=== PATIENT | female | born 1995 | race Caucasian/White ===

== ENCOUNTER 2017-01-06 14:50 | Observation (INO) | payer OTHER, SELFPAY ==
[~2017-01-06] VITALS: Ht 162.6 cm; Wt 62.2 kg
[2017-01-06] MEDS ORDERED: ACETAMINOPHEN 500 MG TAB PO PRN (15:00)
[2017-01-06] MEDS ORDERED: ONDANSETRON 4 MG TAB (S0181) PO PRN (15:00)
[2017-01-06 15:30] VITALS: BP 103/56
--- NOTE | 2017-01-06 20:00 | REPUSA ---
CLINICAL HISTORY: Possible seizure TECHNIQUE: Head MRV with 3D TOF COMPARISON: No study for comparison is available at the time of interpretation. MR venogram: The superior sagittal sinus, transverse sinuses, straight sinus and proximal portions of the internal jugular veins are patent bilaterally. No evidence of venous obstruction. IMPRESSION: Patent intracranial venogram.
--- NOTE | 2017-01-06 20:00 | REPUSA ---
CLINICAL HISTORY: Possible seizure TECHNIQUE: MRI of the Brain without gadolinium. Multiplanar T1 and T2 weighted images of the brain we re obtained. COMPARISON: No study for comparison is available at the time of interpretation. T1 and T2: No hydrocephalus, mass effect or midline shift. FLAIR: No foci of parenchymal edema to suggest ischemic disease or encephalomalacia Vascular flow voids: Preserved, without visible stricture or aneurysm on this non-angiographic exam. Midline: Pituitary normal size. Brain stem and corpus callosum appear normal. Sinuses: Partially visualized sinuses and mastoid aircells are clear. Diffusion Imaging: No regions of abnormal hyperintensity to suggest acute ischemia. Gradient Echo: No evidence of calcium or sequelae of hemorrhagic blood products. IMPRESSION: No acute intracranial abnormalities.
[2017-01-06 22:00] VITALS: BP 117/72
[2017-01-07 06:00] VITALS: BP 112/72
--- NOTE | 2017-01-07 12:47 | CR ---
DATE OF CONSULTATION: 01/07/2017 REFERRING PROVIDER: Dr. Enrrique Carter HISTORY OF PRESENT ILLNESS: The patient is a 21-year-old, (G) 2, para (P) 1-0-0-1, at 18 plus 3 weeks gestation female who was sent to [facility] after having an episode of losing consciousness yesterday. The patient states that yesterday while at the pharmacy she suddenly developed a lightheaded, dizzy feeling lasting a few seconds. The patient went to her home. She enjoyed activities including dancing for about 45 minutes. The patient fell while she was dancing and sprained her ankle pretty badly. She also hurt her knee. She had pretty excruciating pain. She needed to be helped up and was sitting on the couch. The patient sat on the couch for several minutes and then was able to get up and walk to the kitchen. In the kitchen, she felt nauseated and felt like throwing up. The patient then sat down on a stool. She was soon seen to fall backwards and smashed the back of her head to the floor. She was noted to be having fine tremors of her arms and legs for approximately 7-8 seconds. The patient was motionless with her eyes open. The patient then regained consciousness after about 30 seconds. Her fiance and her father helped her up off of the floor. The patient was able to speak and ambulate with assistance to her bedroom. She kept repeating the words it hurts. The patient then sat on the bed and laid down on her own. She was again noted to lose consciousness. The episode of losing consciousness again lasted for several seconds. There was no generalized tonic clonic activity noted. The patient's fiance contacted EMS. Ambulance personnel arrived approximately 15 minutes later. The patient was able to come to after approximately 5-8 minutes of being unconscious and was able to communicate via nodding. She was unable to speak. She could not speak for several hours she states. She remembers waking up in the emergency department when someone was trying to place an IV line after giving her an injection of lidocaine into her right wrist. She states even then her memory was quite patchy. The patient did not have any tongue biting or incontinence. She was quite confused for at least 3 hours. The patient did have a CT scan at [facility] which was negative. She was told that she could be transferred to the emergency department at [facility], but refused the transfer due to fear of cost of this service. She went home. The patient since then has had a persistent headache. She denies any numbness, tingling, vertigo, dizziness, or ataxia at this time. MRI of the brain and MR venogram were recommended due to possible hypercoagulable state during to rule out any sinus thrombosis. It was thought that the patient may have had a seizure. It is quite possible the patient may have actually just had syncope with the significant concussion causing the patient to have a transient altered mental status. The patient seems to be nonfocal on examination at this point. REVIEW OF SYSTEMS: 14-point review of systems was obtained and is negative except as per history of present illness (HPI). CURRENT MEDICATIONS: - vitamins 27/1 mg daily ALLERGIES: - PENICILLIN SOCIAL HISTORY: The patient continues to smoke tobacco. She denies use of any alcohol or illicit drugs. FAMILY HISTORY: Positive for paternal first cousin with seizures. PAST MEDICAL HISTORY: Noncontributory. PAST SURGICAL HISTORY: Noncontributory other than hernia repair. PHYSICAL EXAMINATION: Current weight 127 pounds. Blood pressure 112/60. Respiratory rate is 18. The patient is afebrile. Oxygenation above 90% on room air. The patient is awake, alert, oriented to person, place and time. Speech, language comprehension, and repetition are intact. Pupils are 3 mm round and reactive to light. Extraocular movements are intact in all directions. Sensation V1, V2 and V3 is intact to light touch. No facial asymmetry to activation. Palate elevates symmetrically. Tongue is midline. No weakness of sternocleidomastoids bilaterally. Hearing subjectively equal to finger rub. No pronator drift. Strength is 5/5 including bilateral deltoids, biceps, triceps, handgrip, iliopsoas, quadriceps, anterior tibialis. The patient has some pain and ankle dorsiflexion on the right side due to a sprained ankle with some ecchymosis along the lateral aspect of the ankle. Sensory is intact to light touch and temperature in all four extremities. Coordination: Normal [id number]-aj-ebcm and xdnz-au-labu without any signs of ataxia or dysmetria. Gait deferred. ASSESSMENT: 1. 21-year-old female with episode of loss of consciousness with prolonged confusional state. Cannot entirely exclude seizure due to impact injury. More likely diagnosis would be syncope, vasovagal, in the setting of recent trauma to right knee and sprained ankle causing pain followed by a head injury resulting from syncope causing probable concussion. PLAN: 1. Obtain MRI of brain rule out intracranial abnormalities such as cerebral thrombus. 2. Obtain MR angiogram of the brain/venogram. Rule out dural venous thrombus. 3. Continue pain management as per primary team. 4. Obtain electroencephalogram (EEG). 5. The patient is advised not to drive, operate heavy machinery, climb ladders or work from heights, etc., for the next 6 months. 6. Followup in the neurology clinic after discharge.
[2017-01-07 14:00] VITALS: BP 117/61
--- NOTE | 2017-01-07 16:27 | IPNPDOC ---
Date Seen The patient was seen on 01/06/17. EEG is within normal limits. MRI negative for acute pathology, and thombus. Prolonged confusion possible secondary to concussion, though cannot entirely exclude seizures. Hold off on AED treatment for now. Avoid driving for 6 months. Follow up with outpatient cardiology and neurology. Progress Note SUBJECTIVE: Patient is a -year-old [RACE] [GENDER] with OBJECTIVE PHYSICAL EXAMINATION: VITAL SIGNS: Please see below. GENERAL: HEENT: CARDIOVASCULAR: . RESPIRATORY: . ABDOMINAL: EXTREMITIES: NEUROLOGICAL: PSYCHOLOGICAL: LABORATORY DATA: Please see below. MICROBIOLOGY: Please see below. IMAGING: Echocardiogram: . DVT prophylaxis ordered?: ASSESSMENT AND PLAN: This is a -year-old [RACE] [GENDER] with . PROBLEMS: 1. : . 2. : . 3. : . DISPOSITION: . VS, I&O, 24H, Fishbone Vital Signs/I&O Vital Signs Date Time Temp Pulse Resp B/P (MAP) Pulse Ox O2 Delivery O2 Flow Rate FiO2 01/07/17 14:00 98.1 62 18 117/61 (79) 99 Room Air I&O- Last 24 Hours up to 6 AM 01/08/17 06:00 Intake Total 720 ml Output Total 200 ml Balance 520 ml ALEKSANDR ROBLES MD Jan 07, 2017 16:27
--- NOTE | 2017-01-07 18:05 | EEG ---
DATE OF PROCEDURE: 01/07/2017 REFERRING PHYSICIAN: Dr. Enrrique Carter DIAGNOSIS: Seizure. EEG NUMBER: [id number] HISTORY: The patient is a 21-year-old woman with history of fall and loss of consciousness. This EEG was done to rule out epileptic potential. She is currently taking Zofran and vitamins. TECHNICAL DESCRIPTION: This digital EEG was recorded by 21 scalp ear and two EKG electrodes and was reviewed in bipolar and referential montages following reformatting in 10-20 international electrode placement system. INTERPRETATION: The patient was noted to be in awake and drowsy states during this EEG. Resting awake background rhythm consisted of well-formed posterior dominant rhythm with anterior/posterior gradient comprising of 10 Hz alpha activity measuring 15-40 microvolts in amplitude which was symmetric and reactive to eye opening. Attenuation of posterior dominant was seen during transition into drowsiness. Anteriorly low voltage and mixed frequency activity was noted. Stage I and II sleep were reviewed and were symmetric bilaterally. Hyperventilation elicited mild theta slowing of background rhythm. Photic stimulation remained unremarkable. EKG revealed normal sinus rhythm. No focal, lateralizing or epileptiform abnormalities were seen. No clinical or electrographic seizures were recorded. CONCLUSIONS: This EEG in awake, drowsy states, stage I and II sleep is within normal limits.
[2017-01-07 20:00] VITALS: BP 128/63
[2017-01-08 06:00] VITALS: BP 117/60
[2017-01-08] MEDS ORDERED: TYLE500T78 PO (07:12)
== END 2017-01-08 08:48 | disposition home or self-care (01) ==
LOC: M MSPAV 15:12
PROVIDERS: ADMIT Obstetrics & Gynecology; ATTEND Obstetrics & Gynecology
DX: O26.892 Other specified pregnancy related conditions, second trimester (principal); R42 Dizziness and giddiness; O99.332 Smoking (tobacco) complicating pregnancy, second trimester; F17.210 Nicotine dependence, cigarettes, uncomplicated; Z3A.18 18 weeks gestation of pregnancy; Z88.0 Allergy status to penicillin

== ENCOUNTER → 2017-03-29 | Outpatient (CLI) | payer OTHER ==
[2017-03-29 16:27] LABS: HEMOGLOBIN 8.6 g/dl (12.0-16.0); MEAN CORPUSCULAR HEMOGLOBIN 29.1 pg (27.0-33.0); MEAN CORPUSCULAR HGB CONC 31.9 g/dl (32.0-36.5); MEAN CORPUSCULAR VOLUME 91.2 fl (80.0-96.0); PLATELET COUNT, AUTOMATED 199 10^3/uL (150-450); RED BLOOD COUNT 2.96 10^6/uL (4.00-5.40); RED CELL DISTRIBUTION WIDTH 14.5 % (11.5-14.5); WHITE BLOOD COUNT 8.6 10^3/uL (4.0-10.0)
[2017-03-29 17:51] LABS: GLUCOSE CHALLENGE TEST 1 HOUR 88 MG/DL (LESS THAN 140)
== END ==
LOC: M LAB 13:41
DX: Z34.82 Encounter for supervision of other normal pregnancy, second trimester (principal); Z3A.30 30 weeks gestation of pregnancy
CPT/HCPCS: 76816

== ENCOUNTER 2017-04-01 14:39 | Emergency (ER) | payer OTHER ==
[2017-04-01] MEDS: LIDOCAINE VISCOUS 2% SOLN 15ML UDC MT (15:29)
== END 2017-04-01 15:50 | disposition home or self-care (01) ==
LOC: M ED 14:39
DX: O99.613 Diseases of the digestive system complicating pregnancy, third trimester (principal); K02.9 Dental caries, unspecified; O99.513 Diseases of the respiratory system complicating pregnancy, third trimester; J45.909 Unspecified asthma, uncomplicated; O99.343 Other mental disorders complicating pregnancy, third trimester; F33.9 Major depressive disorder, recurrent, unspecified; F17.210 Nicotine dependence, cigarettes, uncomplicated; O99.89 Other specified diseases and conditions complicating pregnancy, childbirth and the puerperium; R56.9 Unspecified convulsions; Z3A.00 Weeks of gestation of pregnancy not specified; Z79.2 Long term (current) use of antibiotics; Z98.890 Other specified postprocedural states
CPT/HCPCS: 99282

== ENCOUNTER → 2017-04-06 | Outpatient (REF) | payer OTHER | LOC: M LAB REF 16:52 | DX: Z34.83 Encounter for supervision of other normal pregnancy, third trimester (principal) ==

== ENCOUNTER 2017-05-04 21:50 | Outpatient (CLI) | payer OTHER | END 2017-05-04 22:49 | disposition home or self-care (01) | LOC: M LDO 21:50 | DX: O36.8130 Decreased fetal movements, third trimester, not applicable or unspecified (principal); Z3A.35 35 weeks gestation of pregnancy | CPT/HCPCS: 76815 ==

== ENCOUNTER 2018-02-17 17:38 | Emergency (ER) | payer OTHER ==
[2018-02-17] MEDS: MECLIZINE 25 MG TABLET PO (18:23)
[2018-02-17 18:29] LABS: APPEARANCE, URINE TURBID (CLEAR); BACTERIA, URINE AUTO 2+ (NEGATIVE); BILIRUBIN, URINE AUTO NEGATIVE (NEGATIVE); BLOOD, URINE BLOOD 1+ (NEGATIVE); COLOR, URINE AMBER (YELLOW); GLUCOSE, URINE (UA) AUTO NEGATIVE (NEGATIVE); KETONE, URINE AUTO 1+ mg/dL (NEGATIVE); LEUKOCYTE ESTERASE, URINE AUTO 3+ (NEGATIVE); MUCUS, URINE LARGE (NEGATIVE); NITRITE, URINE AUTO NEGATIVE (NEGATIVE); PROTEIN, URINE AUTO 2+ mg/dL (NEGATIVE); RBC, URINE AUTO 56 /HPF (0-3); SPECIFIC GRAVITY URINE AUTO 1.018 (1.002-1.035); SQUAMOUS EPITHELIAL CELL UR AU 32 /HPF (0-6); WBC, URINE AUTO TNTC /HPF (0-3); YEAST LIKE CELL URINE AUTO LARGE
[2018-02-17] MEDS: KETOROLAC 30 MG/ML VIAL (J1885) IV (18:54)
[2018-02-17] MEDS: NS 1,000 ML IV (18:54)
[2018-02-17] MEDS: ONDANSETRON 4MG/2ML VIAL (J2405) IV (18:55)
[2018-02-17 19:04] LABS: BASO % 0.3 % (0.0-1.0); EOS % 0.3 % (0.0-3.0); HEMOGLOBIN 10.3 g/dl (12.0-15.5); IMMATURE GRANULOCYTE % 0.3 % (0-3.0); LYMPH # 0.7 10^3/uL (1.5-6.5); MEAN CORPUSCULAR HEMOGLOBIN 27.7 pg (27.0-33.0); MEAN CORPUSCULAR HGB CONC 32.2 g/dl (32.0-36.5); MONO # 0.9 10^3/uL (0.0-0.8); MONO % 11.2 % (0.0-5.0); NEUTROPHILS # 6.3 10^3/uL (1.8-7.7); NEUTROPHILS % 78.9 % (36.0-66.0); PLATELET COUNT, AUTOMATED 196 10^3/uL (150-450); RED BLOOD COUNT 3.72 10^6/uL (4.00-5.40); RED CELL DISTRIBUTION WIDTH 16.4 % (11.5-14.5)
[2018-02-17 19:07] LABS: INFLUENZA A AMPLIFICATION NEGATIVE (NEGATIVE); INFLUENZA B AMPLIFICATION NEGATIVE (NEGATIVE)
[2018-02-17 19:27] LABS: CONTROL LINE MONO INT CTR LINE PRESENT; MONO SCRN NEGATIVE (NEGATIVE)
[2018-02-17 19:33] LABS: ALBUMIN 3.9 GM/DL (3.2-5.2); ALBUMIN/GLOBULIN RATIO 1.08 (1.00-1.93); ALKALINE PHOSPHATASE 89 U/L (45-117); ALT/SGPT 19 U/L (12-78); ANION GAP 11 MEQ/L (8-16); AST/SGOT 11 U/L (7-37); BILIRUBIN,TOTAL 0.7 MG/DL (0.2-1.0); BLOOD UREA NITROGEN 10 MG/DL (7-18); CALCIUM LEVEL 8.8 MG/DL (8.5-10.1); CARBON DIOXIDE LEVEL 23 MEQ/L (21-32); CHLORIDE LEVEL 104 MEQ/L (98-107); CREATININE FOR GFR 0.74 MG/DL (0.55-1.30); GLUCOSE, FASTING 128 MG/DL (70-100); LIPASE 89 U/L (73-393); POTASSIUM SERUM 3.3 MEQ/L (3.5-5.1); SODIUM LEVEL 138 MEQ/L (136-145); TOTAL PROTEIN 7.5 GM/DL (6.4-8.2)
[2018-02-17] MEDS: ACETAMINOPHEN 325 MG TAB PO (20:43)
[2018-02-17] MEDS: CIPROFLOXACIN 400 MG in APPROPRIATE DILUENT 1 EA IV (20:44)
[2018-02-17] MEDS: D5W 1,000 ML IV (20:44)
== END 2018-02-17 22:08 | disposition home or self-care (01) ==
LOC: M ED 17:38
DX: N12 Tubulo-interstitial nephritis, not specified as acute or chronic (principal); S30.0XXA Contusion of lower back and pelvis, initial encounter; J45.909 Unspecified asthma, uncomplicated; R42 Dizziness and giddiness; M79.10 Myalgia, unspecified site; R79.9 Abnormal finding of blood chemistry, unspecified
CPT/HCPCS: J2405

== ENCOUNTER 2018-06-25 10:39 | Emergency (ER) | payer OTHER ==
[~2018-06-25] VITALS: Ht 165.1 cm; Wt 66.8 kg
[~2018-06-25 10:39] MED LIST: CIPR-249 PO; CLIN150C14 PO; HYDR-3715 PO; HYDR-3719 PO; MECL-68 PO; OXYC1TAB23 PO; TYLE325T5 PO; TYLE500T78 PO
[2018-06-25] MEDS ORDERED: NAPR220C24 PO (10:44)
[2018-06-25] MEDS ORDERED: IBUP-1114 PO (10:44)
[2018-06-25] MEDS ORDERED: EXCETAB33 PO (10:44)
[2018-06-25] MEDS ORDERED: NS 1,000 ML IV ONE (12:00)
[2018-06-25] MEDS ORDERED: KETOROLAC 30 MG/ML VIAL (J1885) IV ONE (12:00)
[2018-06-25] MEDS ORDERED: diphenhydrAMINE INJ 50MG/ML VIAL (J1200) IV ONE (12:00)
[2018-06-25] MEDS ORDERED: METOCLOPRAMIDE INJ 10MG/2ML VIAL (J2765) IV ONE (12:00)
[2018-06-25 12:19] LABS: BASO % 0.6 % (0.0-1.0); EOS % 0.6 % (0.0-3.0); HEMATOCRIT 36.2 % (36.0-47.0); HEMOGLOBIN 11.7 g/dl (12.0-15.5); LYMPH # 1.3 10^3/uL (1.5-6.5); LYMPH % 26.4 % (24.0-44.0); MEAN CORPUSCULAR HEMOGLOBIN 28.7 pg (27.0-33.0); MEAN CORPUSCULAR HGB CONC 32.3 g/dl (32.0-36.5); MEAN CORPUSCULAR VOLUME 88.9 fl (80.0-96.0); MONO # 0.4 10^3/uL (0.0-0.8); MONO % 8.5 % (0.0-5.0); NEUTROPHILS # 3.1 10^3/uL (1.8-7.7); NEUTROPHILS % 63.7 % (36.0-66.0); PLATELET COUNT, AUTOMATED 241 10^3/uL (150-450); RED BLOOD COUNT 4.07 10^6/uL (4.00-5.40); WHITE BLOOD COUNT 4.9 10^3/uL (4.0-10.0)
[2018-06-25] MEDS ORDERED: AFRISPR3 (13:49)
[2018-06-25 14:01] VITALS: BP 116/74
== END 2018-06-25 14:02 | disposition home or self-care (01) ==
LOC: M ED 10:39
DX: R51 Headache (principal); Z88.0 Allergy status to penicillin
CPT/HCPCS: 36415; 81025; 85025; 86140; 96374; 96375; 99284; J1200; J1885; J2765

== ENCOUNTER 2018-08-07 04:39 | Emergency (ER) | payer OTHER, SELFPAY ==
[~2018-08-07] VITALS: Ht 160 cm; Wt 64.5 kg
[~2018-08-07 04:39] MED LIST changes: +AFRISPR3; +EXCETAB33 PO; +IBUP-1114 PO; +NAPR220C24 PO
[2018-08-07] MEDS ORDERED: PRENTAB9 PO (05:37)
[2018-08-07 06:57] LABS: BASO % 0.6 % (0.0-1.0); EOS # 0.1 10^3/uL (0.0-0.50); HEMATOCRIT 31.9 % (36.0-47.0); HEMOGLOBIN 10.6 g/dl (12.0-15.5); LYMPH % 27.1 % (24.0-44.0); MEAN CORPUSCULAR HEMOGLOBIN 30.9 pg (27.0-33.0); MEAN CORPUSCULAR HGB CONC 33.2 g/dl (32.0-36.5); MONO # 0.5 10^3/uL (0.0-0.8); MONO % 6.9 % (0.0-5.0); NEUTROPHILS # 4.6 10^3/uL (1.8-7.7); NEUTROPHILS % 64.1 % (36.0-66.0); PLATELET COUNT, AUTOMATED 241 10^3/uL (150-450); RED BLOOD COUNT 3.43 10^6/uL (4.00-5.40); WHITE BLOOD COUNT 7.2 10^3/uL (4.0-10.0)
--- NOTE | 2018-08-07 07:26 | REPVR ---
EXAM: US First Trimester, Transabdominal EXAM DATE/TIME: 08/07/2018 6:36 AM CLINICAL HISTORY: 23 years old, female; complicated by abdominal or pelvic pain; Lower; First trimester; Gestational age or lmp: 8w 6d; ; Additional info: Vaginal bleeding TECHNIQUE: Imaging protocol: Real-time transabdominal obstetrical ultrasound of the maternal pelvis and a first trimester , less than 14 weeks 0 days, with image documentation. COMPARISON: No relevant prior studies available. FINDINGS: GESTATION: Gestation: Intrauterine gestational sac is seen. pole is detected with crown-rump length of 2.25 cm corresponding to 8 weeks and 6 day gestation. Heart rate: heart rate is detected at 162 beats per minutes. Placenta: Too early to visualize. Amniotic fluid: Amniotic and chorionic fluid are normal for gestational age. BIOMETRY: Estimated gestational age: 8 weeks and 6 days gestation by CRL . MATERNAL: Uterus and cervix are not fully evaluated on today's exam.. Right adnexa: The right ovary is not visualized likely due to obscuration by bowel gas. Left adnexa: The left ovary is not visualized and likely due to obscuration by bowel gas. Intraperitoneal: No intraperitoneal free fluid. IMPRESSION: Single live intrauterine gestation corresponding to 8 weeks and 6 days gestation by crown-rump length. Follow up exam at 20 weeks is suggested for detailed anatomical survey. Electronically signed by: Leonel Hinson On 08/07/2018 07:26:11 AM
[2018-08-07 07:41] LABS: BLOOD UREA NITROGEN 9 MG/DL (7-18); CARBON DIOXIDE LEVEL 24 MEQ/L (21-32); CHLORIDE LEVEL 107 MEQ/L (98-107); CREATININE FOR GFR 0.52 MG/DL (0.55-1.30); GLOMERULAR FILTRATION RATE > 60.0 (>60); GLUCOSE, FASTING 90 MG/DL (70-100); HCG, SERUM QUANTITATIVE 45875 MIU/ML; POTASSIUM SERUM 3.7 MEQ/L (3.5-5.1); SODIUM LEVEL 138 MEQ/L (136-145)
[2018-08-07 09:17] VITALS: BP 121/62
== END 2018-08-07 09:32 | disposition home or self-care (01) ==
LOC: M ED 04:39
DX: O20.0 Threatened abortion (principal); Y04.8XXA Assault by other bodily force, initial encounter; Y92.9 Unspecified place or not applicable; Y93.9 Activity, unspecified; Y99.9 Unspecified external cause status; O99.011 Anemia complicating pregnancy, first trimester; O99.511 Diseases of the respiratory system complicating pregnancy, first trimester; O99.331 Smoking (tobacco) complicating pregnancy, first trimester; O99.341 Other mental disorders complicating pregnancy, first trimester; Z3A.08 8 weeks gestation of pregnancy; Z79.899 Other long term (current) drug therapy; Z88.0 Allergy status to penicillin

== ENCOUNTER 2018-10-01 14:48 | Emergency (ER) | payer SELFPAY ==
[~2018-10-01] VITALS: Ht 162.6 cm; Wt 60.1 kg
[~2018-10-01 14:48] MED LIST changes: +PRENTAB9 PO
[2018-10-01] MEDS ORDERED: NS 500 ML IV ONE (15:00)
[2018-10-01 15:47] LABS: BASO % 0.4 % (0.0-1.0); EOS # 0.1 10^3/uL (0.0-0.50); EOS % 1.1 % (0.0-3.0); HEMATOCRIT 31.6 % (36.0-47.0); HEMOGLOBIN 10.4 g/dl (12.0-15.5); LYMPH # 1.2 10^3/uL (1.5-6.5); LYMPH % 15.6 % (24.0-44.0); MEAN CORPUSCULAR HEMOGLOBIN 30.8 pg (27.0-33.0); MEAN CORPUSCULAR HGB CONC 32.9 g/dl (32.0-36.5); MEAN CORPUSCULAR VOLUME 93.5 fl (80.0-96.0); MONO # 0.5 10^3/uL (0.0-0.8); MONO % 6.5 % (0.0-5.0); NEUTROPHILS % 76.1 % (36.0-66.0); PLATELET COUNT, AUTOMATED 203 10^3/uL (150-450); RED BLOOD COUNT 3.38 10^6/uL (4.00-5.40); WHITE BLOOD COUNT 7.9 10^3/uL (4.0-10.0)
[2018-10-01 16:20] LABS: ALBUMIN 3.4 GM/DL (3.2-5.2); ALT/SGPT 19 U/L (12-78); BILIRUBIN,DIRECT 0.1 MG/DL (0.0-0.2); BILIRUBIN,TOTAL 0.5 MG/DL (0.2-1.0); BLOOD UREA NITROGEN 8 MG/DL (7-18); CALCIUM LEVEL 8.7 MG/DL (8.5-10.1); CARBON DIOXIDE LEVEL 24 MEQ/L (21-32); CHLORIDE LEVEL 105 MEQ/L (98-107); CK-MB VALUE MASS < 1.0 NG/ML (<3.6); CPK CREATINE PHOSPHOKINASE 66 U/L (26-192); CREATININE FOR GFR 0.66 MG/DL (0.55-1.30); GLOMERULAR FILTRATION RATE > 60.0 (>60); GLUCOSE, FASTING 80 MG/DL (70-100); MB/CK RELATIVE INDEX 1.52 (< OR =4); POTASSIUM SERUM 3.8 MEQ/L (3.5-5.1); SODIUM LEVEL 139 MEQ/L (136-145); THYROID STIMULATING HORMONE 0.859 uIU/ML (0.358-3.740); TOTAL PROTEIN 7.1 GM/DL (6.4-8.2); TROPONIN I < 0.02 NG/ML (< 0.10)
[2018-10-01 18:42] VITALS: BP 106/58
--- NOTE | 2018-10-01 19:28 | ECGEPIP ---
[facility] - ED Test Date: 2018-10-01 Pat Name: JUDY ABDUL Department: Room: - Gender: Female Coconut [employer]er: ct : 1995 Requested By: FELTON BRYAN Order Number: [id number] Reading MD: Winston Dent Measurements Intervals [place] Rate: 66 P: 45 MO: 186 QRS: 28 QRSD: 90 T: 6 QT: 396 QTc: 416 Interpretive Statements SINUS RHYTHM POSSIBLE RIGHT VENTRICULAR CONDUCTION DELAY DELAYED R WAVE PROGRESSION NO PRIOR ECG FOR COMPARISON Electronically Signed on 10-01-2018 19:27:36 EDT by Winston Dent
== END 2018-10-01 18:45 | disposition home or self-care (01) ==
LOC: M ED 16:34
DX: O26.819 Pregnancy related exhaustion and fatigue, unspecified trimester (principal); O26.899 Other specified pregnancy related conditions, unspecified trimester; O99.350 Diseases of the nervous system complicating pregnancy, unspecified trimester; O99.519 Diseases of the respiratory system complicating pregnancy, unspecified trimester; O99.340 Other mental disorders complicating pregnancy, unspecified trimester; Z87.891 Personal history of nicotine dependence; Z79.899 Other long term (current) drug therapy; Z88.0 Allergy status to penicillin

== ENCOUNTER → 2018-10-19 | Outpatient (REF) | payer MEDICAID | LOC: M LAB REF 13:29 | PROVIDERS: ATTEND Advanced Practice Midwife | DX: Z12.4 Encounter for screening for malignant neoplasm of cervix (principal) ==

== ENCOUNTER → 2018-10-26 | Outpatient (CLI) | payer MEDICAID ==
--- NOTE | 2018-10-26 15:17 | REP ---
OBSTETRIC SONOGRAPHY: HISTORY: Supervision of for anatomy. FINDINGS: Scanning through the gravid uterus demonstrates a viable single intrauterine gestation in a cephalic lie. motion is observed and heart rate is recorded at 130 beats per minute. Anterior placenta is seen grade 0 without evidence of previa or abruption. Amniotic fluid is subjectively normal. Closed cervical length measures 4.3 cm. No extrauterine abnormalities observed. There has been appropriate interval growth. No anomalies seen. The following anatomic structures are identified and felt to be sonographically unremarkable: cranium, choroid plexus, cavum, cerebellum and posterior fossa, face and profile, lungs, four-chamber heart with left and right ventricular outflow tract views, diaphragm, left-sided stomach, abdominal wall cord insertion, three-vessel umbilical cord, kidneys and bladder, spine, upper and lower extremities. BIOMETRY CHART: BPD 4.7 cm = 20 weeks 2 days Head circumference 17.3 cm = 19 weeks 6 days Abdominal circumference 15.1 cm = 20 weeks 2 days Femur length 3.3 cm = 20 weeks 2 days Humeral length 3.1 cm = 20 weeks 1 day HC/AC ratio normal 1.15 Cephalic index normal 0.77 Estimated weight 343 grams, 0 pounds 12 ounces, 46th percentile for 20 weeks 2 days. IMPRESSION: Viable single intrauterine gestation at 20 weeks 1 day by today's composite sonographic criteria. Expected gestational age estimate based on prior sonography is 20 weeks 2 days. ARTIE by prior sonography March 13, 2019. Electronically Signed by Pola Dover MD 10/26/2018 09:04 P
== END ==
LOC: M RAD 10:29
PROVIDERS: ATTEND Advanced Practice Midwife
DX: Z36.89 Encounter for other specified antenatal screening (principal); Z3A.20 20 weeks gestation of pregnancy

== ENCOUNTER 2018-11-14 20:12 | Outpatient (CLI) | payer MEDICAID, SELFPAY ==
[~2018-11-14] VITALS: Ht 162.6 cm; Wt 64.0 kg
[2018-11-14 20:30] VITALS: BP 117/65
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
[2018-11-14] MEDS ORDERED: ACETAMINOPHEN 500 MG TAB PO ONE (21:15)
[2018-11-14 22:44] VITALS: BP 119/79
[2018-11-15 00:10] LABS: HEMATOCRIT 29.4 % (36.0-47.0); HEMOGLOBIN 9.8 g/dl (12.0-15.5); MEAN CORPUSCULAR HEMOGLOBIN 31.6 pg (27.0-33.0); MEAN CORPUSCULAR HGB CONC 33.3 g/dl (32.0-36.5); MEAN CORPUSCULAR VOLUME 94.8 fl (80.0-96.0); PLATELET COUNT, AUTOMATED 201 10^3/uL (150-450); WHITE BLOOD COUNT 7.5 10^3/uL (4.0-10.0)
[2018-11-15] MEDS ORDERED: PERCOCET 5MG/325MG TAB PO ONE (00:45)
[2018-11-15 01:26] VITALS: BP 124/60
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
== END 2018-11-15 01:56 | disposition home or self-care (01) ==
LOC: M LDO 20:12
PROVIDERS: ATTEND Advanced Practice Midwife
DX: O71.89 Other specified obstetric trauma (principal); W22.8XXA Striking against or struck by other objects, initial encounter; Y93.89 Activity, other specified; Y92.89 Other specified places as the place of occurrence of the external cause; Y99.8 Other external cause status; O47.02 False labor before 37 completed weeks of gestation, second trimester; Z3A.23 23 weeks gestation of pregnancy
CPT/HCPCS: 36415; 76815; 85027; 85460; G0378; G0463

== ENCOUNTER → 2018-11-16 | Outpatient (CLI) | payer MEDICAID, SELFPAY ==
[~2018-11-16] MED LIST changes: +ZOFR4TAB16 PO
[2018-11-16 19:00] LABS: BASO % 0.7 % (0.0-1.0); EOS # 0.1 10^3/uL (0.0-0.5); EOS % 1.4 % (0.0-3.0); HEMATOCRIT 31.5 % (36.0-47.0); HEMOGLOBIN 10.1 g/dl (12.0-15.5); LYMPH # 1.6 10^3/uL (1.5-5.0); LYMPH % 28.2 % (24.0-44.0); MEAN CORPUSCULAR HEMOGLOBIN 31.3 pg (27.0-33.0); MEAN CORPUSCULAR HGB CONC 32.1 g/dl (32.0-36.5); MEAN CORPUSCULAR VOLUME 97.5 fl (80.0-96.0); MONO # 0.5 10^3/uL (0.0-0.8); MONO % 9.2 % (0.0-5.0); NEUTROPHILS # 3.4 10^3/uL (1.5-8.5); NEUTROPHILS % 60.1 % (36.0-66.0); PLATELET COUNT, AUTOMATED 232 10^3/uL (150-450); RED BLOOD COUNT 3.23 10^6/uL (4.00-5.40); WHITE BLOOD COUNT 5.7 10^3/uL (4.0-10.0)
[2018-11-16 20:31] LABS: CHLAMYDIA DNA AMPLIFICATION NEGATIVE (NEGATIVE); GC DNA AMPLIFICATION NEGATIVE (NEGATIVE)
[2018-11-16 20:51] LABS: RUBELLA IgG QUALITATIVE IMMUNE (IMMUNE)
[2018-11-18 13:11] LABS: HEPATITIS C VIRUS ABY INDEX 0.1 INDEX (<0.8); HIV 1&2 SCREEN CENTAUR NEGATIVE (NEGATIVE)
== END ==
LOC: M SMT 14:15
PROVIDERS: ATTEND Advanced Practice Midwife
DX: Z34.82 Encounter for supervision of other normal pregnancy, second trimester (principal); Z3A.00 Weeks of gestation of pregnancy not specified

== ENCOUNTER 2018-12-24 14:06 | Emergency (ER) | payer MEDICAID, SELFPAY ==
[~2018-12-24] VITALS: Ht 162.6 cm; Wt 67.2 kg
[~2018-12-24 14:06] MED LIST changes: -ZOFR4TAB16 PO
[2018-12-24] MEDS ORDERED: ZOFR4TAB16 PO (15:16)
[2018-12-24 15:32] LABS: APPEARANCE, URINE CLOUDY (CLEAR); BACTERIA, URINE AUTO 1+ (NEGATIVE); BILIRUBIN, URINE AUTO NEGATIVE (NEGATIVE); BLOOD, URINE BLOOD NEGATIVE (NEGATIVE); COLOR, URINE YELLOW (YELLOW); GLUCOSE, URINE (UA) AUTO NEGATIVE (NEGATIVE); KETONE, URINE AUTO NEGATIVE (NEGATIVE); LEUKOCYTE ESTERASE, URINE AUTO 2+ (NEGATIVE); MUCUS, URINE SMALL (NEGATIVE); NITRITE, URINE AUTO NEGATIVE (NEGATIVE); PROTEIN, URINE AUTO NEGATIVE (NEGATIVE); RBC, URINE AUTO 2 /HPF (0-3); SQUAMOUS EPITHELIAL CELL UR AU 9 /HPF (0-6); WBC, URINE AUTO 3 /HPF (0-3)
[2018-12-24 15:42] VITALS: BP 124/74
== END 2018-12-24 16:06 | disposition home or self-care (01) ==
LOC: M ED 14:06
DX: O21.9 Vomiting of pregnancy, unspecified (principal); Z3A.29 29 weeks gestation of pregnancy; Z77.120 Contact with and (suspected) exposure to mold (toxic); Z88.0 Allergy status to penicillin

== ENCOUNTER → 2019-01-26 | Outpatient (CLI) | payer MEDICAID, OTHER ==
[~2019-01-26] MED LIST changes: +ZOFR4TAB16 PO
[2019-01-26 15:44] LABS: BASO % 0.4 % (0.0-1.0); EOS # 0.1 10^3/uL (0.0-0.5); EOS % 0.8 % (0.0-3.0); HEMATOCRIT 29.7 % (36.0-47.0); HEMOGLOBIN 9.2 g/dl (12.0-15.5); LYMPH # 1.8 10^3/uL (1.5-5.0); LYMPH % 24.7 % (24.0-44.0); MEAN CORPUSCULAR HEMOGLOBIN 28.5 pg (27.0-33.0); MONO # 0.5 10^3/uL (0.0-0.8); MONO % 7.4 % (0.0-5.0); NEUTROPHILS # 4.7 10^3/uL (1.5-8.5); NEUTROPHILS % 65.5 % (36.0-66.0); PLATELET COUNT, AUTOMATED 214 10^3/uL (150-450); RED BLOOD COUNT 3.23 10^6/uL (4.00-5.40); WHITE BLOOD COUNT 7.2 10^3/uL (4.0-10.0)
== END ==
LOC: M LAB 13:07
PROVIDERS: ATTEND Advanced Practice Midwife
DX: Z34.82 Encounter for supervision of other normal pregnancy, second trimester (principal)

== ENCOUNTER → 2019-02-08 | Outpatient (REF) | payer MEDICAID, OTHER | LOC: M SFHCWAGY 12:36 | PROVIDERS: ATTEND Obstetrics & Gynecology | DX: Z34.93 Encounter for supervision of normal pregnancy, unspecified, third trimester (principal) ==

== ENCOUNTER → 2019-05-12 | Outpatient (REF) ==
[~2019-05-12] MED LIST changes: -MECL-68 PO; +MECL1TAB31 PO
[2019-05-16 00:11] LABS: HERPES ZOSTER, VARICELLA IgG 437 index (Immune >165)
== END ==
LOC: M LAB 15:23
PROVIDERS: ATTEND Nurse Practitioner Adult Health
DX: Z02.9 Encounter for administrative examinations, unspecified (principal)

== ENCOUNTER 2019-06-07 19:13 | Emergency (ER) | payer MEDICAID ==
[~2019-06-07] VITALS: Ht 162.6 cm; Wt 67.9 kg
[2019-06-07] MEDS ORDERED: IRON1TAB2 PO (19:16)
[2019-06-07 20:08] LABS: BASO # 0.1 10^3/uL (0.0-0.2); EOS # 0.1 10^3/uL (0.0-0.5); EOS % 1.9 % (0.0-3.0); HEMATOCRIT 32.8 % (36.0-47.0); HEMOGLOBIN 10.6 g/dl (12.0-15.5); LYMPH # 2.5 10^3/uL (1.5-5.0); LYMPH % 48.3 % (24.0-44.0); MEAN CORPUSCULAR HEMOGLOBIN 30.5 pg (27.0-33.0); MEAN CORPUSCULAR HGB CONC 32.3 g/dl (32.0-36.5); MEAN CORPUSCULAR VOLUME 94.3 fl (80.0-96.0); MONO # 0.4 10^3/uL (0.0-0.8); MONO % 8.6 % (0.0-5.0); NEUTROPHILS # 2.1 10^3/uL (1.5-8.5); PLATELET COUNT, AUTOMATED 232 10^3/uL (150-450); RED BLOOD COUNT 3.48 10^6/uL (4.00-5.40); WHITE BLOOD COUNT 5.1 10^3/uL (4.0-10.0)
[2019-06-07 20:28] LABS: C REACTIVE PROTEIN QUANTITATIV < 0.30 MG/DL (0.00-0.30); URIC ACID 2.9 MG/DL (2.6-6.0)
[2019-06-07 20:38] LABS: ERYTHROCYTE SEDIMENTATION RATE 23 mm/hr (0-20)
[2019-06-07] MEDS ORDERED: IBUPROFEN 600 MG TAB PO ONE (21:00)
[2019-06-07 21:23] VITALS: BP 116/57
--- NOTE | 2019-06-08 08:20 | REP ---
Left foot series: Four views. History: Swollen and tender palpable area on the dorsal aspect of the foot. Findings: Four views of the left foot demonstrate overall normal mineralization. There is some swelling of the dorsal soft tissues of the a forefoot on the lateral radiograph. No soft tissue mass is evident.. No fracture or subluxation is seen. Impression: Dorsal forefoot soft tissue swelling. No fracture or other acute bony abnormality seen. Electronically Signed by Pola Dover MD 06/08/2019 08:11 A
--- NOTE | 2019-06-08 08:31 | REP ---
SOFT-TISSUE ULTRASOUND LEFT DORSAL FOREFOOT. REPEAT DICTATION. HISTORY: Swollen tender area on the dorsal forefoot. Preliminary report is provided at the time of exam by [facility]. FINDINGS: Scanning in the area of the palpable abnormality at the dorsum of the left anterior foot demonstrates a complex cystic area predominantly anechoic containing one partial septation. This measures 3.7 cm x 1.3 x 1.7 cm in diameter. There is no internal blood flow. No surrounding edema or inflammation is seen. IMPRESSION: Subcutaneous cyst in the dorsal soft tissues without blood flow. Hematoma, seroma versus ganglion cyst. Nonspecific. Electronically Signed by Pola Dover MD 06/08/2019 11:04 A
== END 2019-06-07 21:24 | disposition home or self-care (01) ==
LOC: M ED 19:13
DX: M67.472 Ganglion, left ankle and foot (principal); G43.909 Migraine, unspecified, not intractable, without status migrainosus; J45.909 Unspecified asthma, uncomplicated; Z88.0 Allergy status to penicillin; Z79.899 Other long term (current) drug therapy

== ENCOUNTER 2019-06-29 09:40 | Emergency (ER) | payer OTHER ==
[~2019-06-29] VITALS: Ht 162.6 cm; Wt 69.5 kg
[~2019-06-29 09:40] MED LIST changes: +IRON1TAB2 PO
[2019-06-29] MEDS ORDERED: KETOROLAC 60 MG/2 ML VIAL (J1885 PER 15MG) IM ONE (10:00)
[2019-06-29 11:23] VITALS: BP 123/75
--- NOTE | 2019-06-29 11:45 | REP ---
CT BRAIN WITHOUT CONTRAST: CT brain performed without IV contrast. Coronal reconstruction images are performed. Ventricles are normal in size and position with no midline shift or mass effect. Babb-white differentiation is well maintained. There is no acute intracranial hemorrhage or extra-axial fluid collection. Bone window examination demonstrates no fracture. Visualized paranasal sinuses are clear. IMPRESSION: Negative noncontrast CT brain. Electronically Signed by Oc Babb MD 06/29/2019 02:31 P
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
== END 2019-06-29 11:25 | disposition home or self-care (01) ==
LOC: M ED 09:40
DX: T76.11XA Adult physical abuse, suspected, initial encounter (principal); S00.83XA Contusion of other part of head, initial encounter; M54.9 Dorsalgia, unspecified; Y92.098 Other place in other non-institutional residence as the place of occurrence of the external cause; Y07.03 Male partner, perpetrator of maltreatment and neglect; J45.909 Unspecified asthma, uncomplicated; G43.909 Migraine, unspecified, not intractable, without status migrainosus; F41.9 Anxiety disorder, unspecified; F17.200 Nicotine dependence, unspecified, uncomplicated; Z88.0 Allergy status to penicillin
CPT/HCPCS: 70450; 72072; 72114; 96372; 99283; J1885

== ENCOUNTER → 2020-01-01 | Outpatient (REF) | payer OTHER ==
[~2020-01-01] MED LIST changes: +CLIN150C14
== END ==
LOC: M PLALAB 10:12
PROVIDERS: ATTEND Obstetrics & Gynecology
DX: Z34.02 Encounter for supervision of normal first pregnancy, second trimester (principal)

== ENCOUNTER → 2020-01-04 | Outpatient (CLI) | payer OTHER ==
[~2020-01-04] MED LIST changes: -CLIN150C14
--- NOTE | 2020-01-04 16:29 | REP ---
INDICATION: ANATOMY. COMPARISON: None TECHNIQUE: Real-time sonographic evaluation of the gravid uterus performed. FINDINGS: Estimated gestational age is21 weeks 6 days, EDC 05/10/2020. Today's measurements indicate appropriate growth. Presentation: Transverse, head maternal right side. Placenta posterior, grade 1, without evidence of placenta previa. heart rate is recorded at 140 beats per minute. Amniotic fluid is subjectively normal. Closed cervical length is measured at 3.7 cm. Biometry chart: BPD: 51 mm, 21 weeks 4 days, 42nd percentile. HC: 200 mm, 22 weeks 1 days, 56th percentile AC: 168 mm, 21 weeks 6 days, 48 percentile Femur length: 36 mm, 21 weeks 3 days, 38th percentile HC to AC ratio: 1.19, normal range 1.05-1.24. Estimated weight: 443g, 33rd percentile. anatomy: Cranium: Grossly normal Lateral Ventricles/Choroid Plexus: Grossly normal Posterior Fossa/Cerebellum: Grossly normal Nose/lips/profile: Grossly normal Four chamber heart: Grossly normal Right ventricular outflow tract: Grossly normal Left ventricular outflow tract: Grossly normal Left-sided stomach: Grossly normal Kidneys: Grossly normal Bladder: Grossly normal Cord Insertion: Grossly normal 3 vessel cord: Grossly normal Spine: Grossly normal IMPRESSION: Viable single intrauterine gestation as above. <Electronically signed by Oc Babb > 01/04/20 [id number]
== END ==
LOC: M WHC 13:45
PROVIDERS: ATTEND Obstetrics & Gynecology
DX: Z34.02 Encounter for supervision of normal first pregnancy, second trimester (principal)

== ENCOUNTER → 2020-02-07 | Outpatient (REF) | payer OTHER ==
[2020-02-07 15:52] LABS: HEMATOCRIT 32.5 % (36.0-47.0); HEMOGLOBIN 10.2 g/dl (12.0-15.5); MEAN CORPUSCULAR HEMOGLOBIN 30.9 pg (27.0-33.0); MEAN CORPUSCULAR HGB CONC 31.4 g/dl (32.0-36.5); MEAN CORPUSCULAR VOLUME 98.5 fl (80.0-96.0); PLATELET COUNT, AUTOMATED 226 10^3/uL (150-450); WHITE BLOOD COUNT 6.6 10^3/uL (4.0-10.0)
[2020-02-07 17:11] LABS: HIV 1&2 SCREEN CENTAUR NEGATIVE (NEGATIVE)
[2020-02-07 17:30] LABS: CHLAMYDIA DNA AMPLIFICATION NEGATIVE (NEGATIVE); GC DNA AMPLIFICATION NEGATIVE (NEGATIVE)
== END ==
LOC: M PLALAB 13:57
PROVIDERS: ATTEND Obstetrics & Gynecology
DX: Z34.02 Encounter for supervision of normal first pregnancy, second trimester (principal); Z3A.00 Weeks of gestation of pregnancy not specified

== ENCOUNTER 2020-02-18 17:55 | Emergency (ER) | payer OTHER ==
[~2020-02-18] VITALS: Ht 162.6 cm; Wt 72.4 kg
[2020-02-18 17:56] VITALS: BP 133/83
[2020-02-18] MEDS ORDERED: CLIN150C14 (18:04)
[2020-02-18] MEDS ORDERED: CLIN150C14 PO ×2 (18:36→18:37)
[2020-02-18] MEDS ORDERED: CLINDAMYCIN 150MG CAPSULE PO ONE (18:45)
== END 2020-02-18 18:44 | disposition home or self-care (01) ==
LOC: M ED 17:55
DX: K04.7 Periapical abscess without sinus (principal); G43.909 Migraine, unspecified, not intractable, without status migrainosus; J45.909 Unspecified asthma, uncomplicated; F41.9 Anxiety disorder, unspecified; F32.9 Major depressive disorder, single episode, unspecified; Z88.0 Allergy status to penicillin; Z3A.28 28 weeks gestation of pregnancy

== ENCOUNTER → 2020-11-28 | Outpatient (CLI) | payer OTHER ==
[~2020-11-28] MED LIST changes: -CLIN150C14 PO; +CLIN150C17; +CLIN150C17 PO
== END ==
LOC: M LABSMTC 11:47
PROVIDERS: ATTEND Pediatrics
DX: Z11.52 Encounter for screening for COVID-19 (principal)

== ENCOUNTER → 2021-04-17 | Outpatient (CLI) | payer OTHER ==
[2021-04-17 17:13] LABS: BASO # 0.1 10^3/uL (0.0-0.2); BASO % 0.6 % (0.0-1.0); EOS # 0.2 10^3/uL (0.0-0.5); EOS % 2.2 % (0.0-3.0); HEMOGLOBIN 10.5 g/dl (12.0-15.5); LYMPH # 1.8 10^3/uL (1.5-5.0); LYMPH % 21.7 % (24.0-44.0); MEAN CORPUSCULAR HGB CONC 32.8 g/dl (32.0-36.5); MEAN CORPUSCULAR VOLUME 94.4 fl (80.0-96.0); MONO # 0.6 10^3/uL (0.0-0.8); MONO % 6.7 % (2.0-8.0); NEUTROPHILS # 5.7 10^3/uL (1.5-8.5); NEUTROPHILS % 68.3 % (36.0-66.0); PLATELET COUNT, AUTOMATED 238 10^3/uL (150-450); RED BLOOD COUNT 3.39 10^6/uL (4.00-5.40); WHITE BLOOD COUNT 8.3 10^3/uL (4.0-10.0)
[2021-04-17 19:49] LABS: GC DNA AMPLIFICATION NEGATIVE (NEGATIVE)
[2021-04-18 12:20] LABS: HEPATITIS C VIRUS ABY INDEX < 0.0 INDEX (<0.8); HIV 1&2 SCREEN CENTAUR NEGATIVE (NEGATIVE)
== END ==
LOC: M PLALAB 15:03
PROVIDERS: ATTEND Obstetrics & Gynecology
DX: Z34.82 Encounter for supervision of other normal pregnancy, second trimester (principal)

== ENCOUNTER → 2021-05-02 | Outpatient (CLI) | payer OTHER | LOC: M WHC 13:35 | PROVIDERS: ATTEND Obstetrics & Gynecology | DX: Z34.82 Encounter for supervision of other normal pregnancy, second trimester (principal) ==

== ENCOUNTER → 2021-06-30 | Outpatient (REF) | payer OTHER | LOC: M SFHCWAGY 10:15 | PROVIDERS: ATTEND Obstetrics & Gynecology | DX: R30.0 Dysuria (principal) ==

== ENCOUNTER 2021-07-05 00:24 | Outpatient (CLI) | payer OTHER ==
[~2021-07-05] VITALS: Ht 160 cm; Wt 77.9 kg
[2021-07-05 00:48] VITALS: BP 113/54
[2021-07-05] MEDS ORDERED: ACET325C5 PO (01:03)
[2021-07-05] MEDS ORDERED: HOME MED LIST COMPLETE! XX SCH (01:05)
[2021-07-05 01:25] VITALS: BP 109/59
[2021-07-05] MEDS ORDERED: PERCOCET 5MG/325MG TAB PO ONE (02:00)
[2021-07-05 02:49] VITALS: BP 114/56
[2021-07-05] MEDS ORDERED: CYCLOBENZAPRINE 10MG TABLET PO ONE (03:00)
[2021-07-05] MEDS ORDERED: cefTRIAXone SOD 1 GM in D5W MINI-BAG PLUS 50 ML IV ONE (03:00)
[2021-07-05 04:17] VITALS: BP 115/60
[2021-07-05 06:11] VITALS: BP 111/55
[2021-07-05 08:44] VITALS: BP 114/58
== END 2021-07-05 08:55 ==
LOC: M LDO 00:24
PROVIDERS: ATTEND Specialist
DX: O23.43 Unspecified infection of urinary tract in pregnancy, third trimester (principal); O26.893 Other specified pregnancy related conditions, third trimester; M25.551 Pain in right hip; M25.512 Pain in left shoulder; Z3A.29 29 weeks gestation of pregnancy
CPT/HCPCS: 59025; 96374; J0696

== ENCOUNTER → 2021-07-18 | Outpatient (REF) | payer OTHER ==
[~2021-07-18] MED LIST changes: +ACET325C5 PO; +EXCETAB32 PO; -EXCETAB33 PO
[2021-07-18 17:25] LABS: APPEARANCE, URINE CLOUDY (CLEAR); BACTERIA, URINE AUTO 1+ (NEGATIVE); BILIRUBIN, URINE AUTO NEGATIVE (NEGATIVE); BLOOD, URINE BLOOD NEGATIVE (NEGATIVE); COLOR, URINE YELLOW (YELLOW); GLUCOSE, URINE (UA) AUTO NEGATIVE (NEGATIVE); KETONE, URINE AUTO NEGATIVE (NEGATIVE); LEUKOCYTE ESTERASE, URINE AUTO 3+ (NEGATIVE); MUCUS, URINE SMALL (NEGATIVE); NITRITE, URINE AUTO NEGATIVE (NEGATIVE); PROTEIN, URINE AUTO 1+ mg/dL (NEGATIVE); RBC, URINE AUTO 1 /HPF (0-3); SPECIFIC GRAVITY URINE AUTO 1.019 (1.002-1.035); SQUAMOUS EPITHELIAL CELL UR AU 15 /HPF (0-6); WBC, URINE AUTO 13 /HPF (0-3)
== END ==
LOC: M SFHCWAGY 16:52
PROVIDERS: ATTEND Obstetrics & Gynecology
DX: O23.43 Unspecified infection of urinary tract in pregnancy, third trimester (principal)

== ENCOUNTER 2021-08-06 12:05 | Outpatient (CLI) | payer OTHER ==
[~2021-08-06] VITALS: Ht 162.6 cm; Wt 78.2 kg
[2021-08-06 12:25] VITALS: BP 122/69
[2021-08-06 13:54] VITALS: BP 121/74
[2021-08-06] MEDS ORDERED: TERCONAZOLE-7 VAGINAL CREAM TOP SCH (21:00)
== END 2021-08-06 13:32 | disposition home or self-care (01) ==
LOC: M LDO 12:05
PROVIDERS: ATTEND Advanced Practice Midwife
DX: O26.893 Other specified pregnancy related conditions, third trimester (principal); R10.30 Lower abdominal pain, unspecified; R25.2 Cramp and spasm; Z3A.33 33 weeks gestation of pregnancy

== ENCOUNTER → 2021-08-15 | Outpatient (CLI) | payer OTHER | LOC: M WHC 12:03 | PROVIDERS: ATTEND Obstetrics & Gynecology | DX: Z34.82 Encounter for supervision of other normal pregnancy, second trimester (principal); Z3A.34 34 weeks gestation of pregnancy ==

== ENCOUNTER → 2021-08-27 | Outpatient (REF) | payer OTHER | LOC: M SFHCWAGY 09:58 | PROVIDERS: ATTEND Specialist | DX: Z34.83 Encounter for supervision of other normal pregnancy, third trimester (principal) ==

== ENCOUNTER 2021-08-30 10:11 | Outpatient (CLI) | payer OTHER ==
[~2021-08-30] VITALS: Ht 160 cm; Wt 80.3 kg
[2021-08-30] MEDS ORDERED: HOME MED LIST COMPLETE! XX SCH (10:25)
[2021-08-30 10:28] VITALS: BP 122/77
[2021-08-30] MEDS ORDERED: PERCOCET 5MG/325MG TAB PO ONE (11:00)
[2021-08-30 12:46] VITALS: BP 120/90
== END 2021-08-30 12:50 | disposition home or self-care (01) ==
LOC: M LDO 10:11
PROVIDERS: ATTEND Specialist
DX: O26.893 Other specified pregnancy related conditions, third trimester (principal); R10.2 Pelvic and perineal pain; Z3A.36 36 weeks gestation of pregnancy

== ENCOUNTER 2021-09-02 22:35 | Inpatient (IN) | payer OTHER ==
[~2021-09-02] VITALS: Ht 160 cm; Wt 79.4 kg
[2021-09-02 22:48] VITALS: BP 134/95
[2021-09-02] MEDS ORDERED: HOME MED LIST COMPLETE! XX SCH (22:55)
[2021-09-02 23:16] VITALS: BP 126/81
[2021-09-03] VITALS (23 sets, daily range): BP systolic 118–186; BP diastolic 59–99
[2021-09-03] MEDS ORDERED: LR 1,000 ML IV SCH ×2 (04:55→09:15)
[2021-09-03] MEDS ORDERED: CARBOPROST TROMETHAMINE 250 MCG/ML AMP IM PRN (04:55)
[2021-09-03] MEDS ORDERED: OXYTOCIN DRIP 30 UNITS in IV 1 EA IV PRN ×4 (04:55)
[2021-09-03] MEDS ORDERED: METHYLERGONOVINE MALEATE 0.2 MG/ML VIAL (J2210) IM PRN (04:55)
[2021-09-03] MEDS ORDERED: LIDOCAINE 1% MDV 20ML VIAL INFIL PRN (04:55)
[2021-09-03] MEDS ORDERED: TRANEXAMIC ACID INJection 1,000 MG in NS 100 ML IV PRN (04:55)
[2021-09-03] MEDS ORDERED: OXYTOCIN INJ 10 UNITS/ML VIAL (J2590) IM PRN (04:55)
[2021-09-03] MEDS ORDERED: CLINDAMYCIN 900 MG in IV 1 EA IV SCH (05:00)
[2021-09-03 05:09] LABS: HEMATOCRIT 27.4 % (36.0-47.0); HEMOGLOBIN 8.6 g/dl (12.0-15.5); MEAN CORPUSCULAR HEMOGLOBIN 26.7 pg (27.0-33.0); MEAN CORPUSCULAR HGB CONC 31.4 g/dl (32.0-36.5); MEAN CORPUSCULAR VOLUME 85.1 fl (80.0-96.0); PLATELET COUNT, AUTOMATED 208 10^3/uL (150-450); RED BLOOD COUNT 3.22 10^6/uL (4.00-5.40); WHITE BLOOD COUNT 8.5 10^3/uL (4.0-10.0)
[2021-09-03] MEDS: PRENATAL VITAMINS CHEWABLE TABLET PO SCH (09:00)
[2021-09-03] MEDS ORDERED: OXYTOCIN DRIP 30 UNITS in IV 1 EA IV SCH (09:15)
[2021-09-03] MEDS ORDERED: RHOGAM 300 MCG (1500 IU) INJ (J2790) IM SCH (11:35)
[2021-09-03] MEDS ORDERED: METHYLERGONOVINE MALEATE 0.2 MG TAB PO PRN (11:35)
[2021-09-03] MEDS ORDERED: DOCUSATE SODIUM 100MG CAPSULE PO PRN (11:35)
[2021-09-03] MEDS ORDERED: ACETAMINOPHEN TAB 650MG DOSE (2X325MG) PO PRN (11:35)
[2021-09-03] MEDS ORDERED: DIBUCAINE 1% OINTMENT 30GM TOP PRN (11:35)
[2021-09-03] MEDS ORDERED: IBUPROFEN 600MG TAB PO PRN (11:35)
[2021-09-03] MEDS: ACETAMINOPHEN 500 MG TAB PO PRN (12:22)
[2021-09-03] MEDS: IBUPROFEN 800 MG TAB PO PRN (20:08)
[2021-09-04 05:28] VITALS: BP 147/76
[2021-09-04] MEDS: PRENATAL VITAMINS CHEWABLE TABLET PO SCH (08:25)
[2021-09-04] MEDS: IBUPROFEN 800 MG TAB PO PRN (09:15)
[2021-09-04 18:00] VITALS: BP 139/76
[2021-09-04] MEDS: ACETAMINOPHEN 500 MG TAB PO PRN (19:55)
[2021-09-05] MEDS: IBUPROFEN 800 MG TAB PO PRN (03:19)
[2021-09-05 06:00] VITALS: BP 131/79
[2021-09-05] MEDS: PRENATAL VITAMINS CHEWABLE TABLET PO SCH (08:40)
[2021-09-05] MEDS: ACETAMINOPHEN 500 MG TAB PO PRN (08:48)
[2021-09-05] MEDS ORDERED: MEASLES,MUMPS,RUBELLA VACCINE INJ (MMR-II) (90707) SC.IMMUN ONE (09:00)
== END 2021-09-05 13:40 | disposition home or self-care (01) | DRG 560 ==
LOC: M LDO 22:35 → M LDI 09-03 04:43 → M OBS 09-03 14:52
PROVIDERS: ADMIT Advanced Practice Midwife; ATTEND Advanced Practice Midwife
PROC: 10E0XZZ Delivery of Products of Conception, External Approach (ICD-10-PCS; principal; 2021-09-03)
DX: O99.824 Streptococcus B carrier state complicating childbirth (principal); Z88.0 Allergy status to penicillin; Z87.891 Personal history of nicotine dependence; Z37.0 Single live birth; Z3A.37 37 weeks gestation of pregnancy

== ENCOUNTER 2022-03-21 13:34 | Emergency (ER) | payer OTHER, SELFPAY ==
[~2022-03-21] VITALS: Ht 160 cm; Wt 77.3 kg
[2022-03-21 13:35] VITALS: BP 124/73
[2022-03-21] MEDS ORDERED: HYDR-3713 PO (17:02)
== END 2022-03-21 15:08 | disposition home or self-care (01) ==
LOC: M ED 14:47
DX: S92.352A Displaced fracture of fifth metatarsal bone, left foot, initial encounter for closed fracture (principal); W10.9XXA Fall (on) (from) unspecified stairs and steps, initial encounter; Y92.009 Unspecified place in unspecified non-institutional (private) residence as the place of occurrence of the external cause; J45.909 Unspecified asthma, uncomplicated; R56.9 Unspecified convulsions; F32.A Depression, unspecified; F41.9 Anxiety disorder, unspecified; Z88.0 Allergy status to penicillin; Z87.891 Personal history of nicotine dependence

== ENCOUNTER → 2022-04-13 | Outpatient (CLI) | payer MEDICAID, OTHER, SELFPAY ==
[~2022-04-13] MED LIST changes: +HYDR-3713 PO
== END ==
LOC: M LABSMTC 09:05
PROVIDERS: ATTEND Anesthesiology
DX: Z01.812 Encounter for preprocedural laboratory examination (principal); Z11.52 Encounter for screening for COVID-19

== ENCOUNTER 2022-04-17 13:39 | Day surgery (SDC) | payer OTHER, MEDICAID ==
[~2022-04-17] VITALS: Ht 160 cm; Wt 77.1 kg
[2022-04-17] MEDS ORDERED: LR 1,000 ML IV SCH ×2 (13:45→18:15)
[2022-04-17 14:19] LABS: HEMATOCRIT 33.6 % (36.0-47.0); HEMOGLOBIN 10.2 g/dl (12.0-15.5); MEAN CORPUSCULAR HEMOGLOBIN 26.3 pg (27.0-33.0); MEAN CORPUSCULAR HGB CONC 30.4 g/dl (32.0-36.5); MEAN CORPUSCULAR VOLUME 86.6 fl (80.0-96.0); PLATELET COUNT, AUTOMATED 204 10^3/uL (150-450); RED BLOOD COUNT 3.88 10^6/uL (4.00-5.40); WHITE BLOOD COUNT 8.3 10^3/uL (4.0-10.0)
[2022-04-17] MEDS ORDERED: BUPIVACAINE HCL 0.25% 30ML VIAL As Ordered ONE (17:11)
[2022-04-17] MEDS ORDERED: IBUP80TA PO (17:34)
[2022-04-17] MEDS ORDERED: PERC5TAB12 PO (17:35)
[2022-04-17] MEDS ORDERED: KETOROLAC 60MG 2ML VIAL As Ordered ONE (17:37)
[2022-04-17] MEDS ORDERED: fentaNYL 100 MCG/2 ML INJECTION As Ordered ONE ×2 (17:37→17:54)
[2022-04-17] MEDS ORDERED: LIDOCAINE 2% 100MG/5ML SDV (FOR ANES.) As Ordered ONE (17:37)
[2022-04-17] MEDS ORDERED: ONDANSETRON 4MG 2ML VIAL As Ordered ONE (17:37)
[2022-04-17] MEDS ORDERED: ROCURONIUM BROMIDE 50MG/5ML VIAL As Ordered ONE (17:37)
[2022-04-17] MEDS ORDERED: SUGAMMADEX SODIUM 500 MG/5 ML VIAL (BRIDION) As Ordered ONE (17:37)
[2022-04-17] MEDS ORDERED: METOCLOPRAMIDE INJ 10MG/2ML VIAL As Ordered ONE (17:37)
[2022-04-17] MEDS ORDERED: propofoL 200 MG/20 ML VIAL As Ordered ONE (17:37)
[2022-04-17] MEDS ORDERED: MIDAZOLAM INJ 2MG/2ML VIAL As Ordered ONE (17:37)
[2022-04-17] MEDS ORDERED: diphenhydrAMINE 50MG/ML VIAL As Ordered ONE (17:38)
[2022-04-17] MEDS ORDERED: ACETAMINOPHEN 1000MG 100ML IV BAG As Ordered ONE (17:46)
[2022-04-17] MEDS ORDERED: ONDANSETRON 4MG 2ML VIAL IV PRN (18:15)
[2022-04-17] MEDS ORDERED: oxyCODONE 5MG TAB PO PRN (18:15)
[2022-04-17] MEDS ORDERED: fentaNYL 100 MCG/2 ML INJECTION IV PRN (18:15)
[2022-04-17] MEDS ORDERED: METOCLOPRAMIDE INJ 10MG/2ML VIAL IV PRN (18:15)
[2022-04-17] MEDS ORDERED: HYDROMORPHONE HCL 0.5 MG/ 0.5 ML SYRINGE IV PRN (18:15)
[2022-04-17 19:28] VITALS: BP 121/78
== END 2022-04-17 19:38 | disposition home or self-care (01) ==
LOC: M SDC 13:39
PROVIDERS: ATTEND Obstetrics & Gynecology
DX: Z30.2 Encounter for sterilization (principal); Z88.0 Allergy status to penicillin
CPT/HCPCS: 36415; 58661; 81025; 85027; 86850; 86900; 86901; 88302; J0131; J1100; J1200; J1885; J2250; J2405; J2765; J3010; S0020

== ENCOUNTER 2022-06-29 18:54 | Emergency (ER) | payer MEDICAID, OTHER ==
[~2022-06-29] VITALS: Ht 162.6 cm; Wt 80.7 kg
[~2022-06-29 18:54] MED LIST changes: +IBUP80TA PO; +PERC5TAB12 PO
[2022-06-29 18:55] VITALS: BP 124/76
[2022-06-29] MEDS ORDERED: BUTACAP78 (19:24)
[2022-06-29] MEDS ORDERED: BUPR150T12 (19:24)
[2022-06-29 21:52] LABS: BASO % 0.5 % (0.0-1.0); EOS % 0.2 % (0.0-3.0); HEMATOCRIT 34.4 % (36.0-47.0); HEMOGLOBIN 10.7 g/dl (12.0-15.5); LYMPH # 0.7 10^3/uL (1.5-5.0); LYMPH % 17.3 % (24.0-44.0); MEAN CORPUSCULAR HEMOGLOBIN 26.9 pg (27.0-33.0); MEAN CORPUSCULAR HGB CONC 31.1 g/dl (32.0-36.5); MEAN CORPUSCULAR VOLUME 86.4 fl (80.0-96.0); MONO # 0.4 10^3/uL (0.0-0.8); MONO % 8.7 % (2.0-8.0); NEUTROPHILS % 73.1 % (36.0-66.0); PLATELET COUNT, AUTOMATED 196 10^3/uL (150-450); RED BLOOD COUNT 3.98 10^6/uL (4.00-5.40); WHITE BLOOD COUNT 4.2 10^3/uL (4.0-10.0)
[2022-06-29 22:16] LABS: LIPASE 30 U/L (12-53)
[2022-06-29 22:18] LABS: ALBUMIN 3.7 G/DL (3.2-5.2); ALKALINE PHOSPHATASE 70 U/L (46-116); ALT/SGPT 18 U/L (7.0-40); AST/SGOT 18 U/L (<34); BILIRUBIN,DIRECT 0.2 MG/DL (<0.4); BILIRUBIN,TOTAL 0.5 MG/DL (0.3-1.2); BLOOD UREA NITROGEN 11 MG/DL (9-23); CALCIUM LEVEL 8.2 MG/DL (8.5-10.1); CARBON DIOXIDE LEVEL 23 MMOL/L (20-31); CHLORIDE LEVEL 107 MMOL/L (98-107); CREATININE FOR GFR 0.54 MG/DL (0.55-1.30); GLOMERULAR FILTRATION RATE > 60.0 (>60); GLUCOSE, FASTING 91 MG/DL (60-100); POTASSIUM SERUM 3.6 MMOL/L (3.5-5.1); SODIUM LEVEL 138 MMOL/L (136-145); TOTAL PROTEIN 6.9 G/DL (5.7-8.2)
== END 2022-06-29 21:45 | disposition left against medical advice (07) ==
LOC: M ED 18:54
DX: Z53.21 Procedure and treatment not carried out due to patient leaving prior to being seen by health care provider (principal)

== ENCOUNTER 2022-09-20 09:39 | Emergency (ER) | payer OTHER ==
[~2022-09-20] VITALS: Ht 162.6 cm; Wt 81.8 kg
[~2022-09-20 09:39] MED LIST changes: +BUPR150T12; +BUTACAP78
[2022-09-20] MEDS ORDERED: NS 1,000 ML IV ONE ×2 (10:15→13:45)
[2022-09-20] MEDS ORDERED: ACETAMINOPHEN 500 MG TAB PO ONE (10:15)
[2022-09-20] MEDS ORDERED: diphenhydrAMINE 50MG/ML VIAL IV ONE (10:15)
[2022-09-20 11:04] LABS: BASO % 0.8 % (0.0-1.0); EOS # 0.1 10^3/uL (0.0-0.5); EOS % 1.4 % (0.0-3.0); HEMATOCRIT 36.6 % (36.0-47.0); HEMOGLOBIN 11.5 g/dl (12.0-15.5); LYMPH # 1.2 10^3/uL (1.5-5.0); LYMPH % 24.8 % (24.0-44.0); MEAN CORPUSCULAR HGB CONC 31.4 g/dl (32.0-36.5); MEAN CORPUSCULAR VOLUME 89.1 fl (80.0-96.0); MONO # 0.3 10^3/uL (0.0-0.8); MONO % 6.8 % (2.0-8.0); NEUTROPHILS # 3.2 10^3/uL (1.5-8.5); PLATELET COUNT, AUTOMATED 234 10^3/uL (150-450); RED BLOOD COUNT 4.11 10^6/uL (4.00-5.40); WHITE BLOOD COUNT 4.9 10^3/uL (4.0-10.0)
[2022-09-20] MEDS ORDERED: dexAMETHasone 20MG/5ML VIAL IV ONE (11:25)
[2022-09-20] MEDS ORDERED: METOCLOPRAMIDE INJ 10MG/2ML VIAL IV ONE (11:25)
[2022-09-20 11:37] LABS: BLOOD UREA NITROGEN 11 MG/DL (9-23); CALCIUM LEVEL 8.9 MG/DL (8.5-10.1); CARBON DIOXIDE LEVEL 29 MMOL/L (20-31); CHLORIDE LEVEL 106 MMOL/L (98-107); CREATININE FOR GFR 0.63 MG/DL (0.55-1.30); GLOMERULAR FILTRATION RATE > 60.0 (>60); GLUCOSE, FASTING 84 MG/DL (60-100); POTASSIUM SERUM 3.5 MMOL/L (3.5-5.1); SODIUM LEVEL 141 MMOL/L (136-145)
[2022-09-20 11:52] LABS: HCG, SERUM QUALITATIVE NEGATIVE (NEGATIVE)
[2022-09-20] MEDS ORDERED: ISOVUE-370 76% 100ML VIAL As Ordered ONE (11:57)
[2022-09-20] MEDS ORDERED: KETOROLAC 30 MG/ML 1ML VIAL IV ONE (12:40)
[2022-09-20] MEDS ORDERED: MECLIZINE 25 MG TABLET PO ONE (14:40)
[2022-09-20 15:03] LABS: FREE THYROXINE INDEX 2.8 % (1.3-4.8); T UPTAKE 36.3 % (22.5-37.0); THYROID STIMULATING HORMONE 0.724 uIU/ML (0.55-4.78); THYROXINE (T4) 7.7 UG/DL (4.5-10.9)
[2022-09-20] MEDS ORDERED: MECL1TAB31 PO (15:54)
[2022-09-20] MEDS ORDERED: REGL10TA6 PO (15:54)
[2022-09-20 16:34] VITALS: BP 106/58; TEMP 97.1; O2SAT 99
== END 2022-09-20 16:41 | disposition home or self-care (01) ==
LOC: EDBD 09:39 → M ED 09:39
DX: R51.9 Headache, unspecified (principal); R42 Dizziness and giddiness; R56.9 Unspecified convulsions; Z88.0 Allergy status to penicillin; Z79.899 Other long term (current) drug therapy
CPT/HCPCS: 70450; 70496; 80048; 84436; 84443; 84479; 84703; 85025; 93005; 96374; 96375; 99284; J1100; J1200; J1885; J2765; Q9967